=== PATIENT | female | born 1980 | race Caucasian/White ===

== ENCOUNTER 2020-04-28 14:56 | Emergency (ER) | payer OTHER ==
[2020-04-28] MEDS ORDERED: ONDANSETRON 4 MG/2 ML VIAL ONE (15:40)
[2020-04-28] MEDS ORDERED: NA CHLORIDE 0.9% 1,000 ML ONE (15:40)
[2020-04-28] MEDS ORDERED: KETOROLAC 30 MG/ML INJ ONE (15:40)
[2020-04-28] MEDS ORDERED: MORPHINE 2 MG/ML SYR ONE ×2 (15:40→17:09)
[2020-04-28 15:44] LABS: Absolute Lymphocytes (CBC) 2.8 K/uL (0.7-4.9); Basophils % 0.8 % (0-1.3); Hematocrit 38.4 % (36.0-45.0); Lymphocytes % 23.6 % (15.3-44.8); MPV 7.3 fL (7.6-11.3)
[2020-04-28 15:55] LABS: ALT/SGPT 19 U/L (12-78); AST/SGOT 11 U/L (15-37); Albumin 3.7 g/dL (3.4-5.0); Alkaline Phosphatase 51 U/L (45-117); BUN Blood Urea Nitrogen 14 mg/dL (7-18); Bicarbonate 24 mmol/L (21-32); Bilirubin Direct < 0.1 mg/dL (0-0.2); Bilirubin Total 0.4 mg/dL (0.2-1.0); Glucose Level 93 mg/dL (74-106); Lipase 143 U/L (73-393); Potassium 3.7 mmol/L (3.5-5.1); Protein, Total 7.4 g/dL (6.4-8.2); Sodium Level 138 mmol/L (136-145)
--- NOTE | 2020-04-28 16:39 | RAD REPORT ---
EXAM DESCRIPTION: CT - Abdomen Pelvis W Contrast - 04/28/2020 4:26 pm CLINICAL HISTORY: Abdominal pain COMPARISON: none. TECHNIQUE: Computed axial tomography of the abdomen pelvis was obtained. 100 cc Isovue-300 was admin istered intravenously. Oral contrast was not requested which limits evaluation of bowel. All CT scans are performed using dose optimization technique as appropriate and may include automated exposure control or mA/KV adjustment according to patient size. FINDINGS: Cholelithiasis. Gallbladder wall does not appear thickened. Liver, spleen, pancreas, adrenals and kidneys unremarkable There is no evidence of diverticulitis. Normal appendix Fibroid uterus 4 centimeter complex cystic left adnexal. It contains increased density posteriorly. No significant f ree fluid IMPRESSION: 4 centimeter complex cystic left adnexal mass probably a hemorrhagic cyst. Follow up ult rasound in 6 weeks recommended for re-evaluation Fibroid uterus Cholelithiasis without evidence cholecystitis.
--- NOTE | 2020-04-28 16:49 | EDPHYS ---
Physician Documentation [facility] Name: Janie Rodriguez Age: 39 yrs Sex: Female : 1980 Arrival Date: 04/28/2020 Time: 14:58 Bed 20 Private MD: YVES Physician Jatinder Osborne HPI: 04/28 15:24 This 39 yrs old Female presents to ER via Ambulatory with complaints of pratima Pelvic Pain. 15:24 The patient presents with abdominal pain in the left lower quadrant. Onset: The pratima symptoms/episode began/occurred 3 day(s) ago. The symptoms do not radiate. Associated signs and symptoms: none. The symptoms are described as constant, crampy. Modifying factors: The symptoms are alleviated by nothing, the symptoms are aggravated by nothing. Severity of pain: At its worst the pain was mild in the emergency department the pain is unchanged. The patient has not experienced similar symptoms in the past. 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 - Social history:: Smoking status: Patient denies any tobacco usage or history of. - Family history:: not pertinent. ROS: 15:24 Constitutional: Negative for fever, chills, and weight loss, Eyes: Negative for injury, pratima pain, redness, and discharge, ENT: Negative for injury, pain, and discharge, Neck: Negative for injury, pain, and swelling, Cardiovascular: Negative for chest pain, palpitations, and edema, Respiratory: Negative for shortness of breath, cough, wheezing, and pleuritic chest pain, Back: Negative for injury and pain, : Negative for injury, bleeding, discharge, and swelling, MS/Extremity: Negative for injury and deformity, Skin: Negative for injury, rash, and discoloration, Neuro: Negative for headache, weakness, numbness, tingling, and seizure, Psych: Negative for depression, anxiety, suicide ideation, homicidal ideation, and hallucinations, Allergy/Immunology: Negative for hives, rash, and allergies, Endocrine: Negative for neck swelling, polydipsia, polyuria, polyphagia, and marked weight changes, Hematologic/Lymphatic: Negative for swollen nodes, abnormal bleeding, and unusual bruising. 15:24 Abdomen/GI: Positive for abdominal pain, of the left lower quadrant. Exam: 15:24 Constitutional: This is a well developed, well nourished patient who is awake, alert, pratima and in no acute distress. Head/Face: Normocephalic, atraumatic. Eyes: Pupils equal round and reactive to light, extra-ocular motions intact. Lids and lashes normal. Conjunctiva and sclera are non-icteric and not injected. Cornea within normal limits. Periorbital areas with no swelling, redness, or edema. ENT: Nares patent. No nasal discharge, no septal abnormalities noted. Tympanic membranes are normal and external auditory canals are clear. Oropharynx with no redness, swelling, or masses, exudates, or evidence of obstruction, uvula midline. Mucous membranes moist. Neck: Trachea midline, no thyromegaly or masses palpated, and no cervical lymphadenopathy. Supple, full range of motion without nuchal rigidity, or vertebral point tenderness. No Meningismus. Chest/axilla: Normal chest wall appearance and motion. Nontender with no deformity. No lesions are appreciated. Cardiovascular: Regular rate and rhythm with a normal S1 and S2. No gallops, murmurs, or rubs. Normal PMI, no JVD. No pulse deficits. Respiratory: Lungs have equal breath sounds bilaterally, clear to auscultation and percussion. No rales, rhonchi or wheezes noted. No increased work of breathing, no retractions or nasal flaring. Back: No spinal tenderness. No costovertebral tenderness. Full range of motion. Skin: Warm, dry with normal turgor. Normal color with no rashes, no lesions, and no evidence of cellulitis. MS/ Extremity: Pulses equal, no cyanosis. Neurovascular intact. Full, normal range of motion. Neuro: Awake and alert, GCS 15, oriented to person, place, time, and situation. Cranial nerves II-XII grossly intact. Motor strength 5/5 in all extremities. Sensory grossly intact. Cerebellar exam normal. Normal gait. Psych: Awake, alert, with orientation to person, place and time. Behavior, mood, and affect are within normal limits. 15:24 Abdomen/GI: Inspection: abdomen appears normal, Bowel sounds: normal, Palpation: mild abdominal tenderness, moderate abdominal tenderness, in the left lower quadrant, Liver: no appreciated palpable abnormalities, Hernia: not appreciated. Vital Signs: 15:07 BP 156 / 98; Pulse 107; Resp 16 S; Temp 98.1(O); Pulse Ox 100% on R/A; Weight 73.94 kg ca1 (R); Height 5 ft. 2 in. (157.48 cm) (R); Pain 4/10; 16:32 BP 117 / 74; Pulse 83; Resp 15 S; Pulse Ox 99% on R/A; ca1 15:07 Body Mass Index 29.81 (73.94 kg, 157.48 cm) ca1 MDM: 14:59 [facility]. [facility] 15:33 Data reviewed: vital signs, nurses notes, lab test result(s), radiologic studies, CT pratima scan, plain films. 15:33 Differential diagnosis: diverticulitis, Irritable bowel syndrome, non-specific abd pratiam pain, pancreatitis, Peptic Ulcer Disease, Pyelonephritis, urinary tract infection. Data interpreted: cardiac monitor: rate is 107 beats/min, rhythm is normal sinus rhythm, Pulse oximetry: on room air is 100 %. Counseling: I had a detailed discussion with the patient and/or guardian regarding: the historical points, exam findings, and any diagnostic results supporting the discharge/admit diagnosis, lab results, radiology results. 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 pt to return to if worsens or persist. 16:51 ED course: pt understands the plan. pratima 04/28 15:18 Order name: Basic Metabolic Panel; Complete Time: 16:42 ca1 04/28 15:18 Order name: CBC with Diff; Complete Time: 15:49 ca1 04/28 15:18 Order name: Hepatic Function; Complete Time: 16:42 ca1 04/28 15:18 Order name: Lipase; Complete Time: 16:42 ca1 04/28 15:18 Order name: Urine Dipstick--Ancillary (enter results) eb 04/28 15:18 Order name: Urine --Ancillary (enter results) eb 04/28 15:18 Order name: IV Saline Lock; Complete Time: 15:18 ca1 04/28 15:18 Order name: Labs collected and sent; Complete Time: 15:18 ca1 04/28 15:52 Order name: CT Abd/Pelvis - IV Contrast Only; Complete Time: 16:42 pratima Administered Medications: 15:31 Drug: NS 0.9% 1000 ml Route: IV; Rate: 1 bolus; Site: right antecubital; ca1 16:30 Follow up: IV Status: Completed infusion ca1 15:32 Drug: Zofran (Ondansetron) 4 mg Route: IVP; Site: right antecubital; ca1 16:30 Follow up: Response: No adverse reaction; Pain is decreased ca1 15:34 Drug: TORadol 30 mg Route: IVP; Site: right antecubital; ca1 16:30 Follow up: Response: No adverse reaction; Pain is decreased ca1 15:36 Drug: morphine 2 mg {Note: rass 0.} Route: IVP; Site: right antecubital; ca1 16:20 Drug: morphine 2 mg {Note: rass 0.} Route: IVP; Site: right antecubital; ca1 17:00 Follow up: Response: No adverse reaction; Pain is decreased; RASS: Alert and Calm (0) ca1 Disposition: 04/28/20 16:49 Discharged to Home. Impression: Pelvic and perineal pain, Unspecified ovarian cysts - left hemorrhagic 4 cm, Leiomyoma of uterus, Cholelithiasis. - Condition is Stable. - Discharge Instructions: Abdominal Pain, Adult, Ovarian Cyst, Pelvic Pain, Female, Cholelithiasis, Pelvic Pain, Female, [id number], Ovarian Cyst, [id number]. - Prescriptions for Tylenol- Codeine #3 300-30 mg Oral Tablet - take 2 tablets by ORAL route every 6 hours As needed; 24 tablet. Motrin IB 200 mg Oral Tablet - take 2 tablet by ORAL route every 6 hours As needed as needed with food; 30 tablet. - Medication Reconciliation Form, Thank You Letter, Antibiotic Education, Prescription Opioid Use form. - Follow up: Private Physician; When: 2 - 3 days; Reason: Recheck today's complaints, Continuance of care, Re-evaluation by your physician. Follow up: Jenni Muñoz MD; When: 2 - 3 days; Reason: Recheck today's complaints, Re-evaluation by your physician. - Problem is new. - Symptoms have improved. Signatures: Dispatcher [employer] Jatinder Cabrera MD MD cha Acob, Cheryl RN RN ca1 Corrections: (The following items were deleted from the chart) 17:29 16:49 04/28/2020 16:49 Discharged to Home. Impression: Pelvic and perineal pain; ca1 Unspecified ovarian cysts - left hemorrhagic 4 cm; Leiomyoma of uterus; Cholelithiasis. Condition is Stable. Forms are Medication Reconciliation Form, Thank You Letter, Antibiotic Education, Prescription Opioid Use. Follow up: Private Physician; When: 2 - 3 days; Reason: Recheck today's complaints, Continuance of care, Re-evaluation by your physician. Follow up: Jenni Muñoz; When: 2 - 3 days; Reason: Recheck today's complaints, Re-evaluation by your physician. Problem is new. Symptoms have improved. pratima
--- NOTE | 2020-04-28 16:49 | ER ---
Nurse's Notes [facility] Name: Janie Rodriguez Age: 39 yrs Sex: Female : 1980 Arrival Date: 04/28/2020 Time: 14:58 Bed 20 Private MD: Diagnosis: Pelvic and perineal pain;Unspecified ovarian cysts-left hemorrhagic 4 cm;Leiomyoma of uterus;Cholelithiasis Presentation: 04/28 15:07 Chief complaint: Patient states: L pelvic area pain since yesterday. Non-radiating, ca1 tender to touch and worse with movement. Denies fever. Denies urinary symptoms. Denies N/V/Diarrhea. Coronavirus screen: Proceed with normal triage. Patient denies a cough. Patient denies shortness of breath or difficulty breathing. Patient denies measured and/or subjective temperature greater than 100.4F prior to today's visit. Patient denies travel on a cruise ship or to a country the [facility] currently lists as an affected area. Patient denies contact with known and/or suspected case of COVID-19. Ebola Screen: Patient negative for fever greater than or equal to 101.5 degrees Fahrenheit, and additional compatible Ebola Virus Disease symptoms Patient denies exposure to infectious person. Patient denies travel to an Ebola-affected area in the 21 days before illness onset. No symptoms or risks identified at this time. Initial Sepsis Screen: Does the patient meet any 2 criteria? No. Patient's initial sepsis screen is negative. Does the patient have a suspected source of infection? No. Patient's initial sepsis screen is negative. Risk Assessment: Do you want to hurt yourself or someone else? Patient reports no desire to harm self or others. Onset of symptoms was April 28, 2020. 15:07 Method Of Arrival: Ambulatory ca1 15:07 Acuity: OSCAR 3 ca1 Triage Assessment: 15:10 General: Appears in no apparent distress. comfortable, Behavior is calm, cooperative, ca1 appropriate for age. Pain: Complains of pain in left lower quadrant Pain does not radiate. Pain currently is 4 out of 10 on a pain scale. Pain began 1 day ago. Is intermittent, Aggravated by repositioning. EENT: No signs and/or symptoms were reported regarding the EENT system. Neuro: Level of Consciousness is awake, alert, obeys commands, Oriented to person, place, time, situation, Appropriate for age. Cardiovascular: Heart tones S1 S2 present Capillary refill < 3 seconds Patient's skin is warm and dry. Respiratory: Airway is patent Respiratory effort is even, unlabored, Respiratory pattern is regular, symmetrical, Breath sounds are clear bilaterally. GI: Abdomen is flat, non-distended, Bowel sounds present X 4 quads. Abd is soft X 4 quads Abdomen is tender to palpation in left lower quadrant. : No signs and/or symptoms were reported regarding the genitourinary system. Derm: Skin is intact, is healthy with good turgor, Skin is pink, warm \T\ dry. Derm: Musculoskeletal: Circulation, motion, and sensation intact. Capillary refill < 3 seconds. 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 - Social history:: Smoking status: Patient denies any tobacco usage or history of. - Family history:: not pertinent. Screenin:12 Abuse screen: Denies threats or abuse. Denies injuries from another. Nutritional ca1 screening: No deficits noted. Tuberculosis screening: No symptoms or risk factors identified. Fall Risk None identified. Assessment: 15:12 Reassessment: See triage notes. ca1 16:32 Reassessment: Patient appears in no apparent distress at this time. Patient and/or ca1 family updated on plan of care and expected duration. Pain level reassessed. Patient is alert, oriented x 3, equal unlabored respirations, skin warm/dry/pink. Vital Signs: 15:07 BP 156 / 98; Pulse 107; Resp 16 S; Temp 98.1(O); Pulse Ox 100% on R/A; Weight 73.94 kg ca1 (R); Height 5 ft. 2 in. (157.48 cm) (R); Pain 4/10; 16:32 BP 117 / 74; Pulse 83; Resp 15 S; Pulse Ox 99% on R/A; ca1 15:07 Body Mass Index 29.81 (73.94 kg, 157.48 cm) ca1 ED Course: 14:58 Patient arrived in ED. ag5 14:58 Jatinder Osborne MD is Attending Physician. pratima 14:59 Yasmine Yip, NIURKA is Primary Nurse. ca1 15:09 Triage completed. ca1 15:10 Arm band placed on right wrist. ca1 15:12 Patient has correct armband on for positive identification. Placed in gown. Bed in low ca1 position. Call light in reach. Side rails up X 1. Pulse ox on. NIBP on. Warm blanket given. 15:18 No provider procedures requiring assistance completed. Initial lab(s) drawn, by in, ca1 sent to lab. Inserted saline lock: 20 gauge in right antecubital area, using aseptic technique. Blood collected. 16:27 CT Abd/Pelvis - IV Contrast Only In Process Unspecified. EDMS 16:47 Jenni Muñoz MD is Referral Physician. pratima 17:06 IV discontinued, intact, bleeding controlled, No redness/swelling at site. Pressure ca1 dressing applied. Administered Medications: 15:31 Drug: NS 0.9% 1000 ml Route: IV; Rate: 1 bolus; Site: right antecubital; ca1 16:30 Follow up: IV Status: Completed infusion ca1 15:32 Drug: Zofran (Ondansetron) 4 mg Route: IVP; Site: right antecubital; ca1 16:30 Follow up: Response: No adverse reaction; Pain is decreased ca1 15:34 Drug: TORadol 30 mg Route: IVP; Site: right antecubital; ca1 16:30 Follow up: Response: No adverse reaction; Pain is decreased ca1 15:36 Drug: morphine 2 mg {Note: rass 0.} Route: IVP; Site: right antecubital; ca1 16:20 Drug: morphine 2 mg {Note: rass 0.} Route: IVP; Site: right antecubital; ca1 17:00 Follow up: Response: No adverse reaction; Pain is decreased; RASS: Alert and Calm (0) ca1 Outcome: 16:49 Discharge ordered by . pratima 17:06 Discharged to home ambulatory, with family. ca1 17:06 Condition: stable 17:06 Discharge instructions given to patient, Instructed on discharge instructions, follow up and referral plans. no drinking with medication, no driving heavy equipment, medication usage, Demonstrated understanding of instructions, follow-up care, medications, Prescriptions given X 2. 17:29 Patient left the ED. ca1 Signatures: Dispatcher [employer] EDJatinder Mccormick MD MD cha Acob, Cheryl, RN RN Lois Steiner ag5
[2020-04-28 17:37] VITALS: TEMP 98.1
[2020-04-28 17:39] VITALS: BP 117/74; O2SAT 99
[2020-04-28 21:03] LABS: Urine Blood TRACE (NEG); Urine Glucose NEGATIVE (NEG); Urine Protein NEGATIVE (NEG); Urine Specific Gravity 1.025 (1.005-1.030)
== END 2020-04-28 17:29 | disposition home or self-care (01) ==
LOC: ER 14:56
DX: N83.202 Unspecified ovarian cyst, left side (principal); D25.9 Leiomyoma of uterus, unspecified; K80.20 Calculus of gallbladder without cholecystitis without obstruction; F32.9 Major depressive disorder, single episode, unspecified; F90.9 Attention-deficit hyperactivity disorder, unspecified type; Z98.82 Breast implant status
CPT/HCPCS: 96361; 85025; 80048; 36415; 81025; 80076; 81003; 83690; 74177; 96375; 96374; 99284; Q9967; J2270 ×2; J7030; J2405

== ENCOUNTER 2020-08-21 07:10 | Day surgery (SDC) | payer OTHER ==
[2020-08-14 16:54] LABS: Absolute Lymphocytes (CBC) 2.9 K/uL (0.7-4.9); Basophils % 0.6 % (0-1.3); Hematocrit 40.1 % (36.0-45.0); Lymphocytes % 38.3 % (15.3-44.8); MPV 7.2 fL (7.6-11.3); RBC Red Blood Cell Count 4.58 M/uL (3.86-4.86)
[2020-08-14 17:54] LABS: Urine Appearance CLEAR; Urine Bilirubin NEGATIVE (NEG); Urine Blood NEGATIVE (NEG); Urine Color YELLOW; Urine Glucose NEGATIVE (NEG); Urine Protein NEGATIVE (NEG); Urine Specific Gravity 1.015 (1.005-1.030); Urine Urobilinogen 0.2 mg/dL (0.2-1.0)
[2020-08-14 17:56] LABS: Urine Microscopic Reflex NO UMIC
[2020-08-21] MEDS ORDERED: LIDOCAINE 2% MPF 5 ML VIAL ONE (07:28)
[2020-08-21] MEDS ORDERED: ROCURONIUM 50 MG/5 ML VIAL IV ONE (07:28)
[2020-08-21] MEDS ORDERED: propofoL 200 MG/20 ML VIAL IV ONE (07:28)
[2020-08-21] MEDS ORDERED: ONDANSETRON 4 MG/2 ML VIAL ONE (07:28)
[2020-08-21] MEDS ORDERED: MIDAZOLAM HCL 2 MG/2 ML INJ ONE ×3 (07:28→08:35)
[2020-08-21] MEDS ORDERED: dexAMETHasone 10 MG/ML VIAL ONE (07:28)
[2020-08-21] MEDS ORDERED: FENTANYL CITR 250 MCG/5 ML ONE (07:28)
[2020-08-21] MEDS ORDERED: CEFAZOLIN/SWI 2gm 2 GM/20 ML SYR ONE (07:34)
[2020-08-21] MEDS ORDERED: SCOPOLAMINE HYDROBROMIDE PATCH TD ONE (07:34)
[2020-08-21] MEDS ORDERED: Ringers Lactate 1,000 ML IV ONE ×2 (07:34→10:34)
[2020-08-21] MEDS ORDERED: VASOPRESSIN 20 UNIT/ML VIAL ONE (08:47)
[2020-08-21] MEDS ORDERED: BUPIVACA 0.25%/EPI 0.0005% MDV 50 ML VIAL ONE (08:48)
[2020-08-21] MEDS ORDERED: NS 0.9% VIAL 10 ML ONE (09:14)
[2020-08-21] MEDS ORDERED: EPHEDRINE SULF 50 MG/ML VIAL ONE (09:14)
[2020-08-21] MEDS: BUPIVACAINE 0.25% PF 30 ML VIAL ONE ×2 (09:16→09:45)
[2020-08-21] MEDS ORDERED: KETOROLAC 30 MG/ML INJ ONE (10:10)
[2020-08-21] MEDS: HYDROMORPHONE HCL 1 MG/ML INJ ONE ×2 (10:57→11:07)
[2020-08-21 11:18] VITALS: TEMP 97.4
--- NOTE | 2020-08-21 11:51 | OP ---
Date of Procedure: 08/21/2020 Surgeon: Jenni Muñoz MD Personal Banking Advisor: Elizabeth Tian. Preoperative Diagnosis: AUB-L/A left lower quadrant pain, dysmenorrhea. Postoperative Diagnosis: AUB-L/A left lower quadrant pain, dysmenorrhea, prior history of umbilical hernia repair and difficult entry, omental adhesions. Procedures Performed: 1.Diagnostic hysteroscopy, endometrial ablation with NovaSure. 2.Diagnostic laparoscopy, lysis of adhesions, bilateral salpingectomy, left oophorectomy. Complications: No complications. Drains: None. Anesthesia: General endotracheal. Estimated Blood Loss: Minimal. Condition: Stable. Findings: No evidence of any endometriosis seen on pelvic examination. Adhesions of the uterus to t he anterior abdominal wall. The umbilical hernia repair side without any adhesions. Left upper quad rant entry with direct laparoscopy was done. Endometrial cavity was empty, excellent ablation effect. Sounding length was 11 cm, cervical length 6, cavity length calculated was 5 cm, width 4.8 cm, power of 132 newman. T is 1 minute and 42 seconds . Excellent ablation effect was visualized after the performance of the ablation. Then cavity was v isualized using hysteroscopy. Appendix normal. Small bowel adhesions to the right lower quadrant, however, not attached to the ova ry or the tube. Omental adhesions of anterior abdominal wall. The patient is a 40-year-old female with heavy periods and dysmenorrhea, also complaining of intermit tent left lower quadrant pain. At this time, this has subsided. She has had 2 C-sections and a tuba l, abdominoplasty, umbilical hernia repair. After she had endometrial sampling and there was no intracavitary atypia or malignancy. She was ken[place] enopausal. She was given the options of endometrial ablation with NovaSure another device and laparo scopy to diagnose and treat her pain. If this fails, she understood that she would need a hysterecto my. As this was less invasive both the options, the patient preferred to start with this. Description Of Procedure: After informed consent was verified, she was taken back to OR, 2 g of Ance f were given. She was placed in supine fashion on the operating table. General anesthesia was given . Placed in a dorsal lithotomy position. Abdomen, vulva, vagina, and perineum were prepped and drap ed in a sterile fashion. Mcneil was placed to drain the bladder. Speculum was placed to expose the c ervix. Anterior lip was grasped with Allis clamps. Diagnostic SlimLine hysteroscope was used to per form the direct hysteroscopy into the uterine cavity. The cavity sounding length with direct measure ment was 11 cm and cervical length was 6 cm. So, calculated cavity length of 5 cm, was entered into the NovaSure generator. The ablation device was then taken and inserted through the cervical canal into the uterine cavity wi thout any problems. Once reached the fundus, the fan was deployed. Width was calculated to be 4.8 c m. This was entered into the generator. Once the cervical os was occluded, cavity integrity test wa s done and this was passed right away. Ablation was then enabled and the cycle started for complete time of 1 minute and 42 seconds. Device was slowly undeployed and removed. Diagnostic hysteroscopy was performed. There was excellent ablation with global defect. This was removed and diagnostic VCa re was introduced and this area was draped. 1 cm left upper quadrant port incision was made in a transverse fashion. This was because of her his tory of abdominoplasty, and umbilical hernia, which was repaired most likely with mesh. So , the left upper quadrant entry was counseled to the patient and that was used. Local Marcaine was i njected before making an incision. Fascia was exposed, incised with a knife, and tagged with 0 Vicry l sutures. Then, rectus muscles were . Rectus fascia was picked up and incised as well, ta gged with 0 Vicryl sutures. Again, this level, peritoneum entered bluntly. S retractors were placed . Michaela was introduced with insufflation of the abdominal cavity, made for good visualization of th e entire abdominal cavity. Upper abdominal surface was completely unremarkable. Omental adhesions w ere present. A 5 left lower quadrant port was placed and the adhesions were taken down with the help of the LigaSure. Then, there were adhesions of the uterus to the anterior abdominal wall. These we re not necessary to be taken down as they did not seem to be contributed to her problem. 5 right lower quadrant port was also placed under direct vision without any problems. Then, after zarco rveying the pelvic cavity in a very thorough fashion, left lateral wall, posterior cul-de-sac, the an terior and posterior broad ligament, ovaries and tubes, there was no evidence of any endometriosis. A very slight amount of dark tissue present at the interruption of the right tube on the distal end. So, there was no cyst on the ovary. However, the ovary appeared to be slightly enlarged. Patient w as counseled if there is no other etiology for her left lower quadrant pain that I would remove the l eft ovary for which she consented for. The infundibulopelvic ligament was taken with the help of the LigaSure and through the mesosalpinx, the dissection was performed to separate the tube, then along the utero-ovarian ligament posterior and towards the uterus. Dissection was carried to the get this to hang down freely. Then, the proximal part of the tube and the ovary were all dissected and cut. This was placed in the posterior cul-de-sac. Then, the right tube was taken down with the LigaSure. Right tubal specimens were removed through the right lower quadrant port directly without a bag and the left ovary and tube were placed in the bag and removed through the left upper quadrant port. All the trocars were removed. No bleeding at the entry and exit. Marcaine was injected at the transver archie fascia level and then at the skin. The left upper quadrant port was removed. The deeper fascial level was closed separately with 2 tag sutures tied to each other and then on the top fascial layer, rectus sheath was closed with the help of the tagged sutures tied to each other. There was excellen t closure. No evidence of any hernia. The subcutaneous tissue was brought together with simple 2-0 Vicryl stitch and skin incisions with 4-0 Vicryl closure interrupted. VCare and Mcneil were removed. Instrument, needle, sponge counts were correct at the end of case. The patient tolerated the proced ure well. She was recovered from anesthesia and taken to PACU in stable condition. There was a good amount of irrigation that was done before the closure. She has 1 week postop appointment with me. She will be discharged home today with Kerry winchester ill be called into [facility]. Regular diet, ambulation, out of work for a week, and she can call the office for any problems and the problem that were placed in the patient's chart. Find ings were discussed with the partner. GLADIS/AUSTIN Voice ID: [id number] Report ID: [id number]
[2020-08-21] MEDS ORDERED: IBUPROFEN 400 MG TAB ONE (12:02)
[2020-08-21] MEDS ORDERED: IBUPROFEN 200 MG TAB PO ONE (12:02)
[2020-08-21] MEDS ORDERED: HYDROCODONE/APAP 5/325 MG TAB ONE (12:42)
[2020-08-21 13:13] VITALS: O2SAT 100
[2020-08-21 13:31] VITALS: BP 10/58
== END 2020-08-21 13:15 | disposition home or self-care (01) ==
LOC: OR 07:10
PROVIDERS: ATTEND Obstetrics & Gynecology
PROC: 0UT14ZZ Resection of Left Ovary, Percutaneous Endoscopic Approach (ICD-10-PCS; 2020-08-21)
PROC: 0UT74ZZ Resection of Bilateral Fallopian Tubes, Percutaneous Endoscopic Approach (ICD-10-PCS; 2020-08-21)
PROC: 0U5B8ZZ Destruction of Endometrium, Via Natural or Artificial Opening Endoscopic (ICD-10-PCS; principal; 2020-08-21 08:00)
DX: N94.6 Dysmenorrhea, unspecified (principal); N93.9 Abnormal uterine and vaginal bleeding, unspecified; N95.1 Menopausal and female climacteric states; N83.202 Unspecified ovarian cyst, left side; R10.32 Left lower quadrant pain; I10 Essential (primary) hypertension; Z20.828 Contact with and (suspected) exposure to other viral communicable diseases
CPT/HCPCS: 85025; 36415; 86900; 86850; 81025; 86901; 88305; 81003; 58563; 58661; U0002; J2704; J2250 ×3; J3010; J1100; J1170; J0690; J7120 ×2; J2405